=== PATIENT | female | born 1975 | race Caucasian/White ===

== ENCOUNTER 2019-02-18 10:12 | Emergency (ER) | payer OTHER ==
[~2019-02-18] VITALS: Ht 172.7 cm; Wt 90.9 kg
[2019-02-18] MEDS ORDERED: DOXYCYCLINE HYCLATE 100 MG TAB PO ONE (12:30)
[2019-02-18] MEDS ORDERED: DOXY100C PO (12:34)
[2019-02-18] MEDS ORDERED: PRED20TA PO (12:34)
[2019-02-18 12:39] VITALS: BP 132/90
== END 2019-02-18 12:41 | disposition home or self-care (01) ==
LOC: M ED 10:12
DX: J03.90 Acute tonsillitis, unspecified (principal); H66.93 Otitis media, unspecified, bilateral; R11.2 Nausea with vomiting, unspecified; Z88.1 Allergy status to other antibiotic agents

== ENCOUNTER → 2024-09-23 | Outpatient (CLI) | payer BC, OTHER ==
[~2024-09-23] MED LIST: DOXY100C3 PO; PRED20TA PO
[2024-09-23 18:35] LABS: BASO # 0.1 10^3/uL (0.0-0.2); BASO % 0.9 % (0.0-1.0); EOS # 0.1 10^3/uL (0.0-0.5); EOS % 2.4 % (0.0-3.0); HEMATOCRIT 34.8 % (36.0-47.0); HEMOGLOBIN 10.6 g/dl (12.0-15.5); LYMPH # 1.6 10^3/uL (1.5-5.0); LYMPH % 29.2 % (24.0-44.0); MEAN CORPUSCULAR HEMOGLOBIN 25.2 pg (27.0-33.0); MEAN CORPUSCULAR HGB CONC 30.5 g/dl (32.0-36.5); MEAN CORPUSCULAR VOLUME 82.7 fl (80.0-96.0); MONO # 0.4 10^3/uL (0.0-0.8); MONO % 7.2 % (2.0-8.0); NEUTROPHILS # 3.2 10^3/uL (1.5-8.5); NEUTROPHILS % 59.9 % (36.0-66.0); PLATELET COUNT, AUTOMATED 389 10^3/uL (150-450); RED BLOOD COUNT 4.21 10^6/uL (4.00-5.40); WHITE BLOOD COUNT 5.4 10^3/uL (4.0-10.0)
[2024-09-23 18:44] LABS: HEMOGLOBIN A1c 5.1 % (4.0-6.0)
[2024-09-23 19:06] LABS: ALBUMIN 3.7 G/DL (3.2-5.2); ALKALINE PHOSPHATASE 83 U/L (35-104); ALT/SGPT 24 U/L (7.0-40); AST/SGOT 18 U/L (<34); BILIRUBIN,TOTAL 0.7 MG/DL (0.3-1.2); BLOOD UREA NITROGEN 11 MG/DL (9-23); CALCIUM LEVEL 9.5 MG/DL (8.5-10.1); CARBON DIOXIDE LEVEL 24 MMOL/L (20-31); CHLORIDE LEVEL 105 MMOL/L (98-107); CHOLESTEROL LEVEL 219 MG/DL (<200); CHOLESTEROL RISK RATIO 3.42 (<5); CREATININE FOR GFR 0.69 MG/DL (0.55-1.30); FREE T4 1.08 NG/DL (0.89-1.76); GLOMERULAR FILTRATION RATE > 60.0 (>58); GLUCOSE, FASTING 98 MG/DL (60-100); HDL CHOLESTEROL 63.9 MG/DL (>40); LDL CHOLESTEROL 134.9 MG/DL (<100); NON-HDL-C 155.1 MG/DL; POTASSIUM SERUM 3.9 MMOL/L (3.5-5.1); SODIUM LEVEL 139 MMOL/L (136-145); THYROID STIMULATING HORMONE 1.017 uIU/ML (0.55-4.78); TRIGLYCERIDES LEVEL 101 MG/DL (<150)
[2024-09-23 19:07] LABS: FOLATE > 24.0 NG/ML (>5.4); TOTAL 25(OH) VITAMIN D 40.9 NG/ML (20.0-100.0); VITAMIN B12 LEVEL 655 PG/ML (211-911)
== END ==
LOC: M WUC 11:06
PROVIDERS: ATTEND Nurse Practitioner Family
DX: E66.9 Obesity, unspecified (principal)

== ENCOUNTER → 2024-10-20 | Outpatient (CLI) | payer BC ==
[2024-10-20 18:16] LABS: EOS # 0.1 10^3/uL (0.0-0.5); EOS % 2.2 % (0.0-3.0); HEMATOCRIT 32.6 % (36.0-47.0); HEMOGLOBIN 9.9 g/dl (12.0-15.5); LYMPH # 1.4 10^3/uL (1.5-5.0); LYMPH % 32.8 % (24.0-44.0); MEAN CORPUSCULAR HGB CONC 30.4 g/dl (32.0-36.5); MEAN CORPUSCULAR VOLUME 82.3 fl (80.0-96.0); MONO # 0.5 10^3/uL (0.0-0.8); MONO % 10.8 % (2.0-8.0); NEUTROPHILS # 2.2 10^3/uL (1.5-8.5); PLATELET COUNT, AUTOMATED 354 10^3/uL (150-450); RED BLOOD COUNT 3.96 10^6/uL (4.00-5.40); WHITE BLOOD COUNT 4.2 10^3/uL (4.0-10.0)
[2024-10-20 18:48] LABS: LDH LACTATE DEHYDROGENASE 200 U/L (120-246)
[2024-10-20 18:49] LABS: IRON (FE) 23 UG/DL (50-170); PERCENT SATURATION 6.4 % (13.2-45.0); TOTAL IRON BINDING CAPACITY 357 UG/DL (250-425)
[2024-10-20 18:51] LABS: FERRITIN 5.3 NG/ML (7.3-270.7); FOLATE > 24.0 NG/ML (>5.4)
[2024-10-20 18:52] LABS: VITAMIN B12 LEVEL 501 PG/ML (211-911)
== END ==
LOC: M WUC 12:11
PROVIDERS: ATTEND Nurse Practitioner Family
DX: D64.9 Anemia, unspecified (principal)

== ENCOUNTER → 2024-10-21 | Outpatient (REF) | payer BC | LOC: M LAB REF 16:50 | PROVIDERS: ATTEND Nurse Practitioner Family | DX: D64.9 Anemia, unspecified (principal) ==

== ENCOUNTER → 2025-01-18 | Outpatient (CLI) | payer BC ==
[2025-01-18 14:21] LABS: BASO % 0.7 % (0.0-1.0); EOS # 0.1 10^3/uL (0.0-0.5); EOS % 1.8 % (0.0-3.0); HEMATOCRIT 32.5 % (36.0-47.0); HEMOGLOBIN 9.7 g/dl (12.0-15.5); LYMPH # 1.7 10^3/uL (1.5-5.0); LYMPH % 27.6 % (24.0-44.0); MEAN CORPUSCULAR HEMOGLOBIN 24.2 pg (27.0-33.0); MEAN CORPUSCULAR HGB CONC 29.8 g/dl (32.0-36.5); MONO # 0.5 10^3/uL (0.0-0.8); MONO % 7.7 % (2.0-8.0); NEUTROPHILS # 3.7 10^3/uL (1.5-8.5); NEUTROPHILS % 61.4 % (36.0-66.0); PLATELET COUNT, AUTOMATED 325 10^3/uL (150-450); RED BLOOD COUNT 4.01 10^6/uL (4.00-5.40); WHITE BLOOD COUNT 6.1 10^3/uL (4.0-10.0)
[2025-01-18 14:45] LABS: ALBUMIN 3.8 G/DL (3.2-5.2); ALKALINE PHOSPHATASE 83 U/L (35-104); ALT/SGPT 40 U/L (7.0-40); AST/SGOT 38 U/L (<34); BILIRUBIN,TOTAL 0.5 MG/DL (0.3-1.2); BLOOD UREA NITROGEN 14 MG/DL (9-23); CALCIUM LEVEL 9.2 MG/DL (8.5-10.1); CARBON DIOXIDE LEVEL 27 MMOL/L (20-31); CHLORIDE LEVEL 105 MMOL/L (98-107); CREATININE FOR GFR 0.74 MG/DL (0.55-1.30); GLOMERULAR FILTRATION RATE > 90.0 (>58); GLUCOSE, FASTING 85 MG/DL (60-100); IRON (FE) 173 UG/DL (50-170); PERCENT SATURATION 53.9 % (13.2-45.0); POTASSIUM SERUM 4.1 MMOL/L (3.5-5.1); SODIUM LEVEL 140 MMOL/L (136-145); TOTAL IRON BINDING CAPACITY 321 UG/DL (250-425); TOTAL PROTEIN 6.5 G/DL (5.7-8.2)
[2025-01-18 14:48] LABS: FERRITIN 646.9 NG/ML (7.3-270.7)
[2025-01-18 15:25] LABS: HEPATITIS C VIRUS ABY INDEX 0.07 INDEX (<0.8)
== END ==
LOC: M WUC 11:40
PROVIDERS: ATTEND Nurse Practitioner Family
DX: Z11.59 Encounter for screening for other viral diseases (principal); D50.9 Iron deficiency anemia, unspecified

== ENCOUNTER → 2025-04-27 | Outpatient (REF) | payer BC ==
[2025-04-29 14:53] LABS: HPV APTIMA Not Detected (Not Detected)
== END ==
LOC: M LAB REF 16:54
PROVIDERS: ATTEND Nurse Practitioner Family
DX: Z12.4 Encounter for screening for malignant neoplasm of cervix (principal)
CPT/HCPCS: 87624; G0123